=== PATIENT | female | born 1990 | race African-American/Black ===

== ENCOUNTER 2016-09-07 13:12 | Outpatient (CLI) | payer OTHER ==
--- NOTE | 2016-09-07 20:38 | Ultrasound Report ---
THYROID ULTRASOUND: 09/07/2016 CLINICAL INDICATION: Right-sided fullness. TECHNIQUE: Real-time scanning was performed with lead generation representative static images obtained. The right lobe measures 5.5 x 2.2 x 2.2 cm, and the left lobe measures 5.0 x 2.3 x 1.7 cm. The isthm us measures 4 mm. The thyroid demonstrates heterogeneous echotexture. There is a hyperechoic nodule in the inferior right lobe, measuring 1.4 x 1.4 x 1.2 cm, with a small cystic component. There is a spongiform 0.8 x 0.6 x 0.4 cm nodule in the left lobe. No cervical adenopathy is seen. IMPRESSION: A 1.4 CM HYPERECHOIC NODULE WITH A CYSTIC COMPONENT IN THE LOWER POLE OF THE RIGHT LOBE. BY ALLEY RADHA PACHECO, THIS IS A LOW SUSPICION NODULE, AND BIOPSY IS NOT RECOMMENDED AT THIS SIZE. SPONGIFORM 0.8 CM NODULE IN THE LEFT LOBE. BY ALLEY GUIDELINES, THIS IS A VERY LOW SUSPICION NODULE, A ND BIOPSY IS NOT RECOMMENDED. JOB #: [id number] EXT JOB #:[id number]
== END 2016-09-07 13:13 | disposition home or self-care (01) ==
LOC: DI 13:12
PROVIDERS: ATTEND Obstetrics & Gynecology
DX: E04.2 Nontoxic multinodular goiter (principal)
CPT/HCPCS: 76536

== ENCOUNTER 2016-09-14 16:50 | Outpatient (CLI) | payer OTHER ==
[2016-09-14 16:57] VITALS: BP 114/67
[2016-09-14 17:19] LABS: BILIRUBIN,URINE NEGATIVE (NEGATIVE)
[2016-09-14 17:35] LABS: UR CULTURE IF IND NOT INDICATED; WBC,URINE 0-3 /HPF (0-5)
== END 2016-09-14 17:30 | disposition home or self-care (01) ==
LOC: WFO 16:50 → OB 16:52 → WFO 17:30
PROVIDERS: ATTEND Obstetrics & Gynecology
DX: R10.9 Unspecified abdominal pain (principal)
CPT/HCPCS: 81001; 87086; 99213

== ENCOUNTER 2016-10-19 08:00 | Outpatient (CLI) | payer OTHER | END 2016-10-19 23:59 | disposition home or self-care (01) | LOC: LAB.R 08:00 | PROVIDERS: ATTEND Obstetrics & Gynecology | DX: Z36 Encounter for antenatal screening of mother (principal) | CPT/HCPCS: 87081 ==

== ENCOUNTER 2016-11-09 08:04 | Inpatient (IN) | payer OTHER ==
[2016-11-09] MEDS ORDERED: SODIUM CHLORIDE FLUSH 0.9% 10 ML SYRINGE IVP PRN (08:38)
[2016-11-09] MEDS ORDERED: ONDANSETRON 4 MG/2 ML VIAL IVP PRN ×2 (08:38→13:39)
[2016-11-09 09:24] LABS: BASOPHILS % (AUTO) 0.2 %; EOSINOPHILS % (AUTO) 0.1 %; HCT - HEMATOCRIT 36.2 % (37.0-47.0); HGB - HEMOGLOBIN 12.1 g/dL (12.0-16.0); LYMPHOCYTES # (AUTO) 1.1 10^3/uL (1.5-3.5); LYMPHOCYTES % (AUTO) 17.3 %; MEAN CORPUSCULAR HEMOGLOBIN 27.7 pg (27.0-31.0); MEAN CORPUSCULAR HGB CONC 33.5 g/dL (32.0-36.0); MEAN CORPUSCULAR VOLUME 82.8 fL (81.0-99.0); MEAN PLATELET VOLUME 7.7 fL (7.9-10.8); MONOCYTES # (AUTO) 0.3 10^3/uL (0.0-1.0); MONOCYTES % (AUTO) 5.3 %; NEUTROPHILS # (AUTO) 4.8 10^3/uL (1.5-6.6); NEUTROPHILS % (AUTO) 77.1 %; NUCLEATED RED BLOOD CELLS AUTO 0.1 /100WBC; RED BLOOD COUNT 4.37 10^6/uL (4.20-5.40); RED CELL DISTRIBUTION WIDTH 13.6 % (12.0-15.0); UNCORRECTED WHITE BLOOD COUNT 6.2 x10^3/uL; WHITE BLOOD COUNT 6.2 x10^3/uL (4.8-10.8)
--- NOTE | 2016-11-09 09:32 | PROVIDER PROGRESS NOTE ---
Labor Progress Note - Uterine Monitoring Contraction Frequency (min/apart): Q5 Contraction Intensity: positive: Strong Uterine Resting Tone: positive: Soft - Monitoring Monitor Mode: positive: External ultrasound Heart Rate Variability: positive: Moderate (6-25 bmp) Accelerations: positive: Present, 15x15 Decelerations: positive: None Strip Review: positive: Category I - Vaginal Exam Dilation (in cm): 3 Effacement (%): 100 Station: -2 Cervical Position: Posterior - Labor Progress Note Labor Progress Note/Additional Text: 26 yo with a 39w3d IUP Active labor Admit to L&D CBC, type and hold Epidural for pain control Expect H&P dictated: [id number]
--- NOTE | 2016-11-09 10:17 | HISTORY & PHYSICAL EXAMINATION ---
DATE OF ADMISSION: 11/09/2016 IDENTIFICATION: A 26-year-old G1, P0, with a 39-3/7 week intrauterine , EDC is 11/13/2016, w ith a 12-week ultrasound consistent with dates. HISTORY OF PRESENT ILLNESS: This is a patient of [facility] who presented on 017 with complaints of contractions. She only had contractions that began earlier this morning at abo ut 2. On examination, her cervix is 3 cm dilated, 100% effaced, -2 station. She is hussein approx imately every 5 minutes and baseline heart tones are in the 130s to 140s, reactive, and categor y 1. There were no decelerations. She also states that there has been no loss of fluid or vaginal ble eding. She desires an epidural for pain control during labor and anticipates to breast feed. 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 She is currently accompanied by her , Jonatan reilly. PAST MEDICAL HISTORY 1. Right thyroid nodule. 2. Left lower lobe nodule. PAST SURGICAL HISTORY: Silicone bilateral breast augmentation on 03/07/2015. ALLERGIES: NO KNOWN DRUG ALLERGIES. MEDICATIONS 1. vitamins. 2. Iron. SOCIAL HISTORY: She denies any tobacco, alcohol or illicit drug use. She is a member of the [employer], as well as her , Laurie. Laurie does have a son from a previous relationship named Chevy. The pa tient is with a female fetus with anticipated name of Aubrey. PAST OBSTETRICAL HISTORY: Primigravida. She transferred to us at approximately 27 weeks gestation [facility]. This has been remarkable for thyroid fullness leading to an ul trasound diagnosis of bilateral thyroid nodules, noted to be hyperechoic in the right lobe and spongi form in the left lower lobe. PAST GYNECOLOGICAL HISTORY: She denies any abnormal Pap smears or sexually transmitted diseases. FAMILY HISTORY: Noncontributory, though maternal grandmother had a stroke. REVIEW OF SYSTEMS: Negative unless otherwise stated. She denies any nausea, vomiting, fevers, chills, diarrhea, or constipation. OBJECTIVE VITAL SIGNS: Heart rate 72, blood pressure 120/78, respirations 20, O2 saturation 100%. GENERAL: She is a well-developed, well-nourished, female in some distress secondary to labor. She is otherwise alert and oriented x3 and very pleasant. HEENT: Within normal limits. CARDIOVASCULAR: Rate is regular, no murmurs or rubs. PULMONARY: Lungs clear to auscultation bilaterally. ABDOMEN: Gravid, nontender. Estimated weight is 7-1/2 pounds. LABORATORY DATA: labs reveal that she is O positive, antibody screen negative, gonorrhea and chlamydia both negative, as well as RPR, HIV, and hepatitis B. Cystic fibrosis screen is negative. O n 09/23/2015, Pap smear is negative. Hepatitis C is negative, as well as urinalysis. A 1 hour GTT is 97. She is rubella immune. anatomical survey consistent with dates and within normal limits. Pl acenta is posterior. ASSESSMENT 1. A 26-year-old G1, P0 with a 39-3/7 week intrauterine . 2. Active labor. PLAN 1. Will admit. 2. CBC and a type and hold. 3. Epidural for pain control when the patient desires. 4. Expect spontaneous vaginal delivery. JOB #: [id number] EXT JOB #:[id number]
[2016-11-09] MEDS: fentaNYL 100 MCG/2 ML VIAL IVP PRN ×2 (10:26→12:03)
[2016-11-09] MEDS: LACTATED RINGERS 1,000 ML IV SCH ×4 (10:28→21:31)
[2016-11-09] MEDS ORDERED: fent/BUPIV 2 MCG/0.125% 250 ML EP ONE (12:13)
[2016-11-09] MEDS ORDERED: fentaNYL 100 MCG/2 ML VIAL ONE (12:13)
[2016-11-09] MEDS ORDERED: ROPIVACAINE 0.2% PF 10 ML VIAL EPI ONE (12:15)
--- NOTE | 2016-11-09 13:14 | PROVIDER PROGRESS NOTE ---
Labor Progress Note - Uterine Monitoring Uterine Monitoring Mode: positive: External toco Contraction Intensity: positive: Moderate Uterine Resting Tone: positive: Soft - Monitoring Monitor Mode: positive: External ultrasound Heart Rate Variability: positive: Moderate (6-25 bmp) Accelerations: positive: Present, 15x15 Decelerations: positive: None Strip Review: positive: Category I - Labor Progress Note Labor Progress Note/Additional Text: 26 yo with a 39w3k IUP Active labor Pain controlled with epidural Pitocin PRN Expect Labs, EKG, Meds, Allergy - Lab Results Fish Bones: 11/09/16 08:39 Other Lab Results: Lab Results x24hrs 11/09/16 Range/Units 08:39 WBC 6.2 (4.8-10.8) x10^3/uL RBC 4.37 (4.20-5.40) 10^6/uL Hgb 12.1 (12.0-16.0) g/dL Hct 36.2 L (37.0-47.0) % MCV 82.8 (81.0-99.0) fL MCH 27.7 (27.0-31.0) pg MCHC 33.5 (32.0-36.0) g/dL RDW 13.6 (12.0-15.0) % Plt Count 233 (130-450) 10^3/uL MPV 7.7 L (7.9-10.8) fL Neut # 4.8 (1.5-6.6) 10^3/uL Lymph # 1.1 L (1.5-3.5) 10^3/uL [place] # 0.3 (0.0-1.0) 10^3/uL Eos # 0.0 (0.0-0.7) 10^3/uL Baso # 0.0 (0.0-0.1) 10^3/uL Absolute Nucleated RBC 0.00 x10^3/uL Nucleated RBCs 0.1 /100WBC - Allergy Allergy: Allergies Allergy/AdvReac Type Severity Reaction Status Date / Time No Known Drug Allergies Allergy Verified 09/14/16 16:56
[2016-11-09] MEDS ORDERED: fent/BUPIV 2 MCG/0.125% 250 ML EP PRN (13:39)
[2016-11-09] MEDS ORDERED: NALOXONE 0.4 MG/ML VIAL IVP PRN (13:39)
[2016-11-09] MEDS ORDERED: NALBUPHINE 20 MG/ML AMP IVP PRN (13:39)
[2016-11-09] MEDS ORDERED: diphenhydrAMINE INJ 50 MG/ML VIAL IVP PRN (13:39)
[2016-11-09] MEDS ORDERED: ePHEDrine 50 MG/ML VIAL IVP PRN (13:39)
[2016-11-09] MEDS ORDERED: METOCLOPRAMIDE 10 MG/2 ML VIAL IVP PRN (13:39)
[2016-11-09] MEDS ORDERED: LACTATED RINGERS 500 ML IV ONE (13:39)
--- NOTE | 2016-11-09 13:58 | PROVIDER PROGRESS NOTE ---
Labor Progress Note - Uterine Monitoring Uterine Monitoring Mode: positive: External toco Contraction Frequency (min/apart): >Q Contraction Intensity: positive: Moderate Uterine Resting Tone: positive: Soft - Monitoring Monitor Mode: positive: External ultrasound Heart Rate Variability: positive: Moderate (6-25 bmp) Accelerations: positive: Present, 15x15 Decelerations: positive: Late Strip Review: positive: Category II - Vaginal Exam Dilation (in cm): 8 Effacement (%): 100 Station: -1 Cervical Position: Posterior - Labor Progress Note Labor Progress Note/Additional Text: 26 yo with a 39w3d IUP Active labor Epidural in place and working well deceleration to 80's with resolution after 2 minutes, 2ndary to prolonged contraction AROM- clear fluid Will empty bladder Anticipate
[2016-11-09] MEDS ORDERED: OXYTOCIN/SODIUM CHLORIDE 250 ML IV SCH ×2 (14:00→22:04)
--- NOTE | 2016-11-09 16:21 | PROVIDER PROGRESS NOTE ---
Labor Progress Note - Uterine Monitoring Uterine Monitoring Mode: positive: External toco Contraction Frequency (min/apart): Q5 Contraction Intensity: positive: Moderate Uterine Resting Tone: positive: Soft - Monitoring Monitor Mode: positive: External ultrasound Heart Rate Variability: positive: Moderate (6-25 bmp) Accelerations: positive: Present, 15x15 Decelerations: positive: Early Strip Review: positive: Category I - Labor Progress Note Labor Progress Note/Additional Text: Patient just received bolus in epidural Pitocin at 1 milliunit/min Reassuring maternal and status Expect
--- NOTE | 2016-11-09 19:58 | PROVIDER PROGRESS NOTE ---
Labor Progress Note - Uterine Monitoring Uterine Monitoring Mode: positive: External toco Contraction Frequency (min/apart): Q2-3 (Pit was up to 3 milliunits/min but stopped due to tachysystole) Contraction Intensity: positive: Moderate Uterine Resting Tone: positive: Soft - Monitoring Monitor Mode: positive: External ultrasound Heart Rate Variability: positive: Moderate (6-25 bmp) Accelerations: positive: Present, 15x15 Decelerations: positive: None Strip Review: positive: Category I - Vaginal Exam Dilation (in cm): 10 Effacement (%): 100 Station: 1 - Labor Progress Note Labor Progress Note/Additional Text: 26 yo with a 39w3d IUP Active labor Continue epidural (received 3rd bolus) Start pushing Expect
[2016-11-09] MEDS ORDERED: MINERAL OIL LIGHT 10 ML MC ONE (21:17)
[2016-11-09] MEDS ORDERED: LIDOCAINE 2% 10 ML MDV ONE (21:29)
[2016-11-09] MEDS ORDERED: HYDROCORTISONE 1% CREAM 28 GM TUBE PR PRN (22:04)
[2016-11-09] MEDS ORDERED: MAGNESIUM HYDROXIDE 2,400 MG/30 ML UDC PO PRN (22:04)
[2016-11-09] MEDS ORDERED: WITCH HAZEL/GLYCERIN 1 EACH MED..PAD TOP PRN (22:04)
[2016-11-09] MEDS ORDERED: SIMETHICONE CHEW 80 MG TABLET PO PRN (22:04)
[2016-11-09] MEDS ORDERED: HYDROcod/ACETAM 5/325 MG TABLET PO PRN (22:04)
--- NOTE | 2016-11-09 22:04 | DELIVERY NOTE ---
Delivery Note - Labor Labor: positive: Spontaneous, Augmented by ARM, Augmented by oxytocin - Delivery Method Infant Delivery Method: positive: Spontaneous vaginal delivery - Presentation Presentation: positive: RANDY - left occiput anterior - Nuchal Cord Nuchal Cord: positive: None - Amniotic Fluid Description Amniotic Fluid Description: positive: Clear - Episiotomy Type Episiotomy Type: positive: None - Laceration Laceration: positive: 1st degree, Labial - Suture Suture Type: positive: Vicryl Suture Size: positive: 4-0 - Delivery Outcome Delivery Outcome: positive: Livebirth - [place]: positive: Placed in direct skin contact with mother, Bulb syringe, Stimulated, Warmed [place] sex: positive: Female : 7 : 9 - Cord Cord: positive: 3 vessels - Placenta Placenta: positive: Intact, Spontaneous - Estimated Blood Loss Estimated Blood Loss (in cc): 200 - Post Delivery Events Post Delivery Events: positive: No post delivery events - Delivery Comments (Free Text/Narrative) Delivery Comments (Free Text/Narrative): 26 yo with a 39w3d IUP presented in active labor at 3/100/-1. Patient received an epidural for pain control by Ace Velázquez. Pitocin for augmentation , max to 3 milliunits/minute. The patient progressed and spontaneously delivered a viable female infant named "Bill." Apgars 7/9, weight 7 lbs 6.3 ozs. Placenta delivered spontaneously, intact with 3VC. 1st degree right superior vulva repaired with 4-0 vicryl. EBL 200 mL, no complications. Rx or Motrin, Tylenol and docusate sent to [facility] pharmacy via fax for care.
[2016-11-09] MEDS: ACETAMINOPHEN 325 MG TABLET PO SCH (22:49)
[2016-11-10] MEDS: ACETAMINOPHEN 325 MG TABLET PO SCH ×6 (04:40→23:01)
[2016-11-10] MEDS: SODIUM CHLORIDE FLUSH 0.9% 10 ML SYRINGE IVP SCH ×2 (07:35→16:17)
[2016-11-10] MEDS: DOCUSATE SODIUM 100 MG CAPSULE PO SCH ×2 (09:02→20:48)
[2016-11-10] MEDS: CELECOXIB 100 MG CAPSULE PO SCH ×2 (09:05→20:48)
--- NOTE | 2016-11-10 10:20 | PROVIDER PROGRESS NOTE ---
Subjective - Prog Note Date Prog Note Date: 11/10/16 Prog Note Time: 10:18 - Subjective Pt reports feeling: Improved Subjective: Patient sitting in bed breast feeding. Feeling well but tired. Normal lochia, pain controlled with po meds. Does not need to take vicodin at this time. No nausea or vomiting. at bedside. Current Medications - Current Medications Current Medications: Celebrex, colace. PRN vicodin Objective - Vital Signs/Intake & Output Reviewed Vital Signs: Yes Vital Signs: Vital Signs x48h Temp Pulse Resp BP Pulse Ox 11/10/16 08:45 98.1 F 72 15 106/59 L 99 11/10/16 04:43 97.9 F 69 16 108/59 L 98 Intake & Output: Intake & Output 11/07/16 11/08/16 11/09/16 11/10/16 23:59 23:59 23:59 23:59 Intake Total 3550 1250 Output Total 2175 Balance 1375 1250 - Objective General Appearance: positive: No acute distress Eyes Bilateral: positive: Normal inspection Abdomen: positive: Non-tender Neurologic/Psychiatric: positive: Oriented x3 - Lab Results Fish Bones: 11/09/16 08:39 Assessment/Plan - Problem List (1) Normal vaginal delivery Impression: 26 yo S/p 11/09/2016 Doing well, normal recovery Routine care. Will continue Celebrex and colace. PRN vicodin. Ambulate. Anticipate discharge to home tomorrow. Rx for motrin, tylenol and docusate sent via fax to [facility]. Handwritten Rx for vicodin also written. Patient to follow up with myself in [address] after taking vicodin. Call for worsening fevers, chills, abdominal pain or vaginal bleeding. Discharge summary dictation: [id number]
--- NOTE | 2016-11-10 11:05 | DISCHARGE SUMMARY ---
DATE OF ADMISSION: 11/09/2016 DATE OF DISCHARGE: IDENTIFICATION ON ADMISSION 1. A 26-year-old G1, P0 with a 39-3/7 week intrauterine . 2. Active labor. DIAGNOSES ON DISCHARGE 1. A 26-year-old G1, P1-0-0-1, status post spontaneous vaginal delivery on 11/09/2016. 2. Normal recovery. BRIEF HISTORY: This is a patient of [facility] who presented on 11/09/2016 with comp laints of increasing contractions. She was found to be in early active labor and her cervix was dilat ed 3 cm, effaced to 100% and -1 station. She was admitted to the hospital and eventually received an epidural for pain control. In addition, she was augmented with Pitocin. She spontaneously delivered a viable female named Enoch. Apgars were 7 and 9 at 1 and 5 minutes, respectively, and she shiraz ghed 7 pounds 6.3 ounces. EBL was 200 mL, and she sustained a first-degree right superior vulvar lace ration that was repaired with 4-0 Vicryl. There were no complications. The patient's course has been unremarkable. She is ambulating and tolerating a regular t. She is also urinating without difficulty, and her pain is controlled with oral medications. She wi ll be discharged home tomorrow, on 11/11/2016, with prescriptions for ibuprofen, Tylenol, docusate an d Vicodin. The first 3 prescriptions have been faxed over to the [facility] pharmacy. A prescription for Vi codin has already been written. She is going to see me at [facility] in 6 weeks for routine examination. I did briefly discuss with the patient her control options and we will talk about it further. She understands not to lift anything heavier than a gallon of milk and not to drive after taking Vicodin. She also should call if she has any worsening fevers, chills, abd ominal pain or vaginal bleeding. JOB #: [id number] EXT JOB #:[id number]
[2016-11-10] MEDS: LACTATED RINGERS 1,000 ML IV SCH (16:16)
[2016-11-11] MEDS: ACETAMINOPHEN 325 MG TABLET PO SCH ×3 (05:23→19:04)
[2016-11-11] MEDS: DOCUSATE SODIUM 100 MG CAPSULE PO SCH ×2 (09:00→20:53)
[2016-11-11] MEDS: CELECOXIB 100 MG CAPSULE PO SCH ×2 (09:00→20:52)
--- NOTE | 2016-11-11 17:29 | PROVIDER PROGRESS NOTE ---
Subjective - Prog Note Date Prog Note Date: 11/11/16 Prog Note Time: 17:27 - Subjective Pt reports feeling: Improved (Pain 2/10, breast feeding. baby with elivated bili.) Objective - Vital Signs/Intake & Output Reviewed Vital Signs: Yes Vital Signs: Vital Signs x48h Temp Pulse Resp BP Pulse Ox 11/11/16 10:00 37.5 C 67 18 115/65 95 Intake & Output: Intake & Output 11/08/16 11/09/16 11/10/16 11/11/16 23:59 23:59 23:59 23:59 Intake Total 3550 1250 Output Total 2175 Balance 1375 1250 - Objective General Appearance: positive: No acute distress, Alert Respiratory: positive: Chest non-tender, No respiratory distress, Breath sounds nml Cardiovascular: positive: Regular rate & rhythm, No murmur Abdomen: positive: Non-tender, Mass (at U) Extremities: positive: Non-tender. negative: Calf tenderness Neurologic/Psychiatric: positive: Oriented x3 - Lab Results Fish Bones: 11/09/16 08:39 Assessment/Plan - Problem List (1) Normal vaginal delivery Impression: Pt is doing well. possible discharge in the AM.
[2016-11-11] MEDS: SODIUM CHLORIDE FLUSH 0.9% 10 ML SYRINGE IVP SCH (19:06)
[2016-11-11] MEDS: LACTATED RINGERS 1,000 ML IV SCH (19:06)
[2016-11-11] MEDS ORDERED: A & D OINTMENT 5 GM PACKET TOP ONE (23:48)
[2016-11-12] MEDS: ACETAMINOPHEN 325 MG TABLET PO SCH ×3 (05:09→11:19)
[2016-11-12] MEDS: LACTATED RINGERS 1,000 ML IV SCH (07:55)
[2016-11-12] MEDS: SODIUM CHLORIDE FLUSH 0.9% 10 ML SYRINGE IVP SCH (07:55)
--- NOTE | 2016-11-12 08:07 | Discharge Plan ---
Discharge Plan Disposition: 01 Home, Self Care Condition: Good Diet: Regular Activity Restrictions: Activity as Tolerated Shower Restrictions: No Driving Restrictions: No Weight Bearing: Full Weight No Smoking: If you smoke, Please STOP! Call for help. Follow-up with: Anya Gutierrez DO [Provider Admit Priv/Credential] -
[2016-11-12] MEDS: DOCUSATE SODIUM 100 MG CAPSULE PO SCH (09:27)
[2016-11-12] MEDS: CELECOXIB 100 MG CAPSULE PO SCH (09:27)
[2016-11-12 09:38] VITALS: BP 117/73
--- NOTE | 2016-11-12 13:09 | Labor Flowsheet ---
Labor Flowsheet Datetime Report Generated by CPN: 11/12/2016 13:09 Datetime: 11/12/2016 09:35 VITAL SIGNS NBP Sys/Jennifer/Mean (mmHg): 117 : 73 : 82 Pulse: 62 LaborFlag: Labor Datetime: 11/11/2016 00:29 SpO2 (%): 100 Datetime: 11/09/2016 21:17 UTERINE ACTIVITY Monitor Mode: External Frequency (min): 1-3 Quality: Strong Duration (sec): 60-120 Pattern: Normal: <= 5 Contractions in 10 Minutes Resting Tone (Palpate): Relaxed ASSESSMENT A Monitor Mode: External US FHR Baseline Rate : 165 Variability: Moderate 6-25 bpm Accelerations: 15X15 Decelerations: Variable Category: Category II Datetime: 11/09/2016 21:16 Stage 2 Comments: wrong delivery time recorded here, actual delivery time is 21:17 Datetime: 11/09/2016 21:15 Oxygen Method: Room Air Datetime: 11/09/2016 21:03 COMMUNICATION Communication: Provider at Bedside Provider Notified (Name): Dr. Matt Datetime: 11/09/2016 21:00 PAIN Pain Scale: 10 TEACHING Instructional Method: Verbal Plan of Care: Plan of Care Discussed; Vaginal Delivery Teaching Comments: what to expect at delivery Datetime: 11/09/2016 20:59 I/O Interventions: Bal Discontinued Datetime: 11/09/2016 20:30 Comments: variables w/ pushing Datetime: 11/09/2016 20:22 Temperature (F): 98.4 Temperature (C): 36.9 Temperature (C): 36.9 Datetime: 11/09/2016 20:18 Temperature Route: Oral Datetime: 11/09/2016 20:05 PATIENT CARE IV/Blood Work: IV Bolus Started Oxygen Amount (LPM): 10 Patient Care Comments: O2 applied Datetime: 11/09/2016 20:00 Respirations: 18 Pain Presence: Intermittent Pain Type: Pressure Pushing Position: Pushing Lithotomy Datetime: 11/09/2016 19:58 STAGE 2 Pushing: Coached on Pushing; Urge to Push Pushing Progress: Descent with Pushing Datetime: 11/09/2016 19:48 VAGINAL EXAM Dilatation (cm): 10.0 Effacement (%): 100 Exam by: Dr. Matt Datetime: 11/09/2016 19:30 MATERNAL ASSESSMENT Level of Consciousness: Fully Conscious Breath Sounds, Left: Clear and Equal Breath Sounds, Right: Clear and Equal Datetime: 11/09/2016 19:17 MEDICATIONS Pitocin (milliunits): Discontinued Medication Comments: related to tachysystole. Datetime: 11/09/2016 19:15 Pain Assessment Comments: pressed epidural button Datetime: 11/09/2016 19:00 Patient Position/Activity: Right Lateral ANESTHESIA Anesthesia Plans: Epidural Anesthesia Comments: pt sleeping but arouses easily Unit Routine: Unit Personnel Labor/Induction: Labor Stages Pain Management: Epidural; Pain Scale/Goals Datetime: 11/09/2016 18:21 Monitor Interventions for UA: Kiefer Adjusted Datetime: 11/09/2016 18:00 Anesthesia Level Check: T11 Datetime: 11/09/2016 17:56 Station: -1 Membrane Status: Ruptured Datetime: 11/09/2016 17:26 Actions for Decelerations: Side to Side Datetime: 11/09/2016 17:16 Communication Comments: patient has denied feeling symptomatic of hypotension since admission Datetime: 11/09/2016 16:46 Monitor Interventions for FHR: Ultrasound Adjusted Datetime: 11/09/2016 16:12 Epidural Procedure: epidural bolus per anesthesia; continous epidural rate infusion increase to 12c c/hour per anesthesia Datetime: 11/09/2016 16:00 Contraction Comments: provider at bedside and reviews EFM tracing Datetime: 11/09/2016 15:02 Pitocin Checklist: At Least 1 Acceleration of 15 bpm x 15 Seconds in 30 Minutes or Adequate Variabi lity; No More than 1 Late Deceleration Occurred in Past 30 Minutes; No More than 2 Variable Decelerat ions > 60 Seconds in Duration and decreasing >60 bpm in 30 minutes; No More than 5 Uterine Contractio ns in 10 Minutes for any 20 Minute Interval; Uterus Palpates Soft between Contractions Datetime: 11/09/2016 15:00 Hygiene: Geraldine Care; Underpad Changed Datetime: 11/09/2016 14:53 Vaginal Bleeding: Scant Cervix, Consistency: Moderate Cervix, Position: Midposition Vaginal Exam Comments: S. Means, RN Datetime: 11/09/2016 14:00 FHR Baseline Changes: No Baseline Change Datetime: 11/09/2016 13:50 Membranes Ruptured Date/Time: 11/09/2016 13:50 Membranes Rupture Method: Artificial Amniotic Fluid Color: Clear Amniotic Fluid Amount: Small Amniotic Fluid Odor: Normal Datetime: 11/09/2016 13:47 Provider Reviewed Strip: Yes Strip Reviewed by: Dr. Gutierrez Datetime: 11/09/2016 13:00 Stage of : Labor Epidural Procedure Other: continous epidural infusion rate set at 10cc/hour by anesthesia; see anes thesia documentation Datetime: 11/09/2016 12:32 Epidural Positioning: Sitting Datetime: 11/09/2016 12:19 PROCEDURE TIME OUT Procedure Verify: Correct Patient Identity; Correct Side and Site are Marked; Accurate Procedure Co nsent Form; Agreement on Procedure to be Done; Correct Patient Position; Relevant Images and Results are Properly Labeled and Displayed; Addressed Need to Administer Antibiotics or Fluids for Irrigation ; Safety Precautions Based on Patient History or Medication Use Datetime: 11/09/2016 10:26 Analgesics/Sedatives: Fentanyl (mcg) @ (Annotations: 50mcg)
--- NOTE | 2016-11-12 16:42 | DISCHARGE SUMMARY ---
DATE OF ADMISSION: 11/09/2016 DATE OF DISCHARGE: 11/12/2016 DIAGNOSES 1. Term , labor. 2. Right thyroid nodule. 3. Uneventful vaginal delivery of a living female . 4. Left occiput anterior (RANDY). PROCEDURE: Vaginal delivery over an intact perineum with minor laceration repair (Dr. Gutierrez). COMPLICATIONS: None. HISTORY OF PRESENT ILLNESS: The patient is a 26-year-old black primigravida at 39 weeks 3 days gestation who has had regular care at [facility]. On initial presentation her membranes were intact and dilation was 3 cm, 100%, and -2 station with CAT-1 tracing. She was normotensive without any symptoms of preeclampsia. Reference Dr. Gutierrez's H and P. HOSPITAL COURSE: The patient was admitted and due to slow progress, was begun on Pitocin augmentation. She was in an RANDY presentation. Epidural was uneventfully placed by Ace Velázquez. The patient smoothly progressed and was delivered. Baby Bill was a female weighing 7 pounds 6.3 inches and scoring Apgars of 7 and 9. There was a minor vulvar tear that was repaired with 4-0 Vicryl. Total blood loss was 200 mL. Postoperatively, the patient did well, advancing to full diet and normal activity. There was a slight bump in the bilirubin resulting in bili lights. Time was taken to work with the mother on breast feeding, which she mastered. By post-delivery day #3, the patient was doing well, as was the baby, and she was prepared for discharge. Complete warning sign and call back instructions were reviewed. DISCHARGE MEDICATIONS 1. vitamins and iron. 2. Motrin 600 t.i.d. x7 days with 1 refill. 3. Colace 100 b.i.d. for 30 days with 1 refill. FOLLOWUP: The will be followed at the [facility]. The patient will have a check at 6 [address] and then return to [facility] care. JOB #: [id number] EXT JOB #:[id number] MTDD
== END 2016-11-12 12:45 | disposition home or self-care (01) | DRG 775 ==
LOC: WFO 08:04 → FBP 08:11 → WFO 08:35 → FBP 08:38
PROVIDERS: ADMIT Obstetrics & Gynecology; ATTEND Obstetrics & Gynecology
PROC: 10E0XZZ Delivery of Products of Conception, External Approach (ICD-10-PCS; principal; 2016-11-09)
PROC: 0HQ9XZZ Repair Perineum Skin, External Approach (ICD-10-PCS; 2016-11-09)
PROC: 10907ZC Drainage of Amniotic Fluid, Therapeutic from Products of Conception, Via Natural or Artificial Opening (ICD-10-PCS; 2016-11-09)
DX: O99.284 Endocrine, nutritional and metabolic diseases complicating childbirth (principal); E04.1 Nontoxic single thyroid nodule; O70.0 First degree perineal laceration during delivery; O76 Abnormality in fetal heart rate and rhythm complicating labor and delivery; Z3A.39 39 weeks gestation of pregnancy; Z37.0 Single live birth; Z98.82 Breast implant status
CPT/HCPCS: 36415; 85025; 99212